=== PATIENT | male | born 1945 | race Caucasian/White ===

== ENCOUNTER → 2020-05-21 | Outpatient (CLI) | payer MEDICARE ==
[~2020-05-21] MED LIST: FAMO20TA37 PO; HYDR20TA PO; HYDROCHLOROTHIAZIDE PO; MULT-717 PO; OXYC-302 PO; PRAVASTATIN PO; RAMIPRIL PO
== END | disposition home or self-care (01) ==
LOC: RAD 16:46
PROVIDERS: ATTEND Physician Assistant Surgical
DX: M71.21 Synovial cyst of popliteal space [Baker], right knee (principal); R22.41 Localized swelling, mass and lump, right lower limb